=== PATIENT | male | born 1950 | race Caucasian/White ===

== ENCOUNTER → 2021-06-14 | Outpatient (CLI) | payer MEDICARE, OTHER ==
--- NOTE | 2021-06-14 13:41 | Diagnostic Imaging Report ---
INDICATION: Elbow pain. COMPARISON: 05/08/2021. FINDINGS: 3 views of the left elbow show no fractures, dislocations, or other acute bony abnormalities identified. Joint spaces are well maintained throughout. There is focal soft tissue prominence posteriorly over the olecranon. No radiopaque foreign bodies are identified. IMPRESSION: 1. No acute fractures or dislocations of the left elbow. 2. Possible olecranon bursitis. Clinical correlation is recommended. Dictated by: Dictated on workstation # [id number]
--- NOTE | 2021-06-14 13:54 | Diagnostic Imaging Report ---
INDICATION: Knee pain. COMPARISON: None. FINDINGS: Multiple radiographic views of the right knee were obtained. There is no acute fracture or dislocation. Osseous structures are intact. There are tricompartmental osteoarthritic changes. This is greatest involving the medial tibiofemoral compartment where there is severe joint space narrowing with sclerotic remodeling to the articular surfaces and osteophyte formations. Joint spaces are otherwise maintained. There is no large joint effusion. No unexpected radiopaque foreign bodies are seen. IMPRESSION: 1. No acute fracture or dislocation of the right knee. 2. Moderate osteoarthritic changes. Dictated by: Dictated on workstation # [id number]
== END ==
LOC: ORTHO 12:51
PROVIDERS: ATTEND Orthopaedic Surgery
DX: M17.11 Unilateral primary osteoarthritis, right knee (principal); M25.522 Pain in left elbow
CPT/HCPCS: 73080; 73564; G0463; 99213

== ENCOUNTER 2021-06-15 05:41 | Outpatient (CLI) | payer MEDICARE, OTHER ==
[~2021-06-15] VITALS: Ht 185.5 cm; Wt 113.6 kg
[2021-06-22] MEDS ORDERED: OXYC5TAB PO (09:09)
== END 2021-06-19 16:16 | disposition home or self-care (01) ==
LOC: PREOP 05:41
PROVIDERS: ATTEND Orthopaedic Surgery
DX: Z01.818 Encounter for other preprocedural examination (principal)

== ENCOUNTER → 2021-06-22 | Day surgery (SDC) | payer MEDICARE, OTHER ==
[~2021-06-22] VITALS: Ht 185.5 cm; Wt 113.6 kg
[2021-06-22] VITALS (10 sets, daily range): BP systolic 134–146; BP diastolic 76–92
[~2021-06-22] MED LIST: LACTATED RINGERS 1,000 ML IV PRN; LIDOCAINE PF 2% 5 ML (XYLOCAINE) VIAL ONE; LIDOCAINE/EPI 1%-1:200,000 (XYLOCAINE) 30 ML VIAL ONE; MIDAZOLAM 2 MG/2 ML (VERSED) VIAL ONE; ONDANSETRON 4 MG/2 ML (SDV) Z0FRAN ONE; OXYC5TAB PO; SEVOFLURANE (ULTANE) 15 ML INHAL SOLN ONE; ceFAZolin 2 GM IV Premixed 50 ML ONE; fentaNYL INJ 100 MCG/2 ML AMP ONE; proPOfol 200 MG/20 ML (DIPRIVAN) VIAL IV ONE
--- NOTE | 2021-06-22 07:17 | Progress Note-Pre Operative ---
Pre-Operative Progress Note H&P Reviewed The H&P was reviewed, patient examined and no changes noted. Date Seen by Provider: Jun 22, 2021 Time Seen by Provider: 07:10 Date H&P Reviewed: Jun 22, 2021 Time H&P Reviewed: 07:10 Pre-Operative Diagnosis: Left Olecranon Bursitis HAKEEM WOOTEN MD Jun 22, 2021 07:16
--- NOTE | 2021-06-22 09:06 | Operative Report - Ortho ---
Operative Report Surgeon (s)/Process Helper (s) Surgeon HAKEEM WOOTNE MD Process Helper n/a Pre-Operative Diagnosis Left Olecranon Bursitis Post-Operative Diagnosis same Operative Report Date of Procedure: Jun 22, 2021 Name of Procedure Performed: Left Olecranon Bursectomy Description & Findings After obtaining informed consent and marking the patient in the preoperative holding area, patient was taken to the operating room and general anesthesia was induced. Surgical timeout was taken. The left upper extremity was prepped and draped in the usual sterile fashion. Incision was made over the olecranon bursa ellipsing out the draining sinus. Bursa was entered and the was return of a chalky fluid. Swab was obtained and sent for gram stain and culture. The bursal tissue was noted to have a solid white material distributed in clumps throughout it. A scalpel was used to sharply excised the bursal tissue. The excision was widened to include tissue that had the embedded material. Rongeur was used to remove further whitish material. Bursal tissue was sent for pathology, felt to represent gouty tophi. Wound was explored no further deposits were noted. Wound was irrigated with normal saline and closed in layered fashion with 2-0 vicryl and 3-0 nylon. Wound was dressed with xeroform, 4x4s, kerlix, and JESUS wrap. Patient tolerated the procedure well and was stable to the recovery room. Anesthesia Type General Estimated Blood Loss minimal Specimen(s) collected/removed Swab sent for culture and gram stain; bursal tissue sent for pathology. HAKEEM WOOTEN MD Jun 22, 2021 09:06
--- NOTE | 2021-06-27 16:12 | Anesthesia-General Post-Op ---
General Significant Intra-Op Events Notes late entry 06/22@ 1000 Patient Condition Mental Status/LOC: Same as Preop Cardiovascular: Satisfactory Nausea/Vomiting: Absent Respiratory: Satisfactory Pain: Controlled Complications: Absent Post Op Complications Complications None Follow Up Care/Instructions Patient Instructions None needed. Anesthesia/Patient Condition Patient Condition Patient is doing well, no complaints, stable vital signs, no apparent adverse anesthesia problems. No complications reported per nursing. NADIRA ABREU CRNA Jun 27, 2021 16:12
== END | disposition home or self-care (01) ==
LOC: SDC 07:02
PROVIDERS: ATTEND Orthopaedic Surgery
DX: M1A.0221 Idiopathic chronic gout, left elbow, with tophus (tophi) (principal); M70.22 Olecranon bursitis, left elbow; H91.90 Unspecified hearing loss, unspecified ear; H54.7 Unspecified visual loss; G47.33 Obstructive sleep apnea (adult) (pediatric); K21.9 Gastro-esophageal reflux disease without esophagitis; Z87.891 Personal history of nicotine dependence; Z79.899 Other long term (current) drug therapy
CPT/HCPCS: 87070; 87075; 87081; 87205

== ENCOUNTER → 2021-07-10 | Outpatient (CLI) | payer MEDICARE, OTHER ==
[~2021-07-10] MED LIST changes: -LACTATED RINGERS 1,000 ML IV PRN; -LIDOCAINE PF 2% 5 ML (XYLOCAINE) VIAL ONE; -LIDOCAINE/EPI 1%-1:200,000 (XYLOCAINE) 30 ML VIAL ONE; -MIDAZOLAM 2 MG/2 ML (VERSED) VIAL ONE; -ONDANSETRON 4 MG/2 ML (SDV) Z0FRAN ONE; -SEVOFLURANE (ULTANE) 15 ML INHAL SOLN ONE; -ceFAZolin 2 GM IV Premixed 50 ML ONE; -fentaNYL INJ 100 MCG/2 ML AMP ONE; -proPOfol 200 MG/20 ML (DIPRIVAN) VIAL IV ONE
== END ==
LOC: ORTHO 14:06
PROVIDERS: ATTEND Orthopaedic Surgery
DX: Z47.89 Encounter for other orthopedic aftercare (principal); M10.9 Gout, unspecified; Z98.890 Other specified postprocedural states
CPT/HCPCS: 36415; 84550

== ENCOUNTER → 2023-01-15 | Outpatient (CLI) | payer MEDICARE, OTHER ==
--- NOTE | 2023-01-15 17:44 | Diagnostic Imaging Report ---
INDICATION: Right knee pain. AP and lateral and sunrise views of the right knee were obtained. No fracture or acute bony abnormality is seen. There is severe medial joint space narrowing and ossified formation with some lateral subluxation of the tibia relative to the femur. Lateral joint space shows no significant narrowing but does show some osteophyte formation. There is patellofemoral spurring. IMPRESSION: There are osteoarthritic changes of the right knee most prominent in the medial compartment. No acute fracture. Dictated by: Dictated on workstation # [id number]
== END ==
LOC: ORTHO 10:50
PROVIDERS: ATTEND Orthopaedic Surgery
DX: M17.11 Unilateral primary osteoarthritis, right knee (principal)
CPT/HCPCS: 73564; G0463; 99213

== ENCOUNTER 2023-03-18 09:10 | Outpatient (CLI) | payer MEDICARE, OTHER ==
[~2023-03-18] VITALS: Ht 185.5 cm; Wt 114.7 kg
[~2023-03-18 09:10] MED LIST changes: -APIX2.5T PO; -CETI10TA17 PO; -MELO15TA39 PO; -MONT-40 PO; -OMEP40CA6 PO; -OXC5T PO; -TMSL.4C PO; -VENL75CA93 PO
[2023-03-18] MEDS ORDERED: CETI10TA17 PO (12:00)
[2023-03-18] MEDS ORDERED: MONT-40 PO (12:00)
[2023-03-18] MEDS ORDERED: TMSL.4C PO (12:00)
[2023-03-18] MEDS ORDERED: MELO15TA39 PO (12:00)
[2023-03-18] MEDS ORDERED: OMEP40CA6 PO (12:00)
[2023-03-18] MEDS ORDERED: VENL75CA93 PO (12:00)
[2023-03-18 12:02] VITALS: BP 155/94
[2023-03-18 12:53] LABS: BASOPHILS # (AUTO) 0.1 10^3/uL (0.0-0.1); BASOPHILS % (AUTO) 1 % (0-10); EOSINOPHILS # (AUTO) 0.5 10^3/uL (0.0-0.3); EOSINOPHILS % (AUTO) 7 % (0-10); HEMATOCRIT 44 % (40-54); HEMOGLOBIN 15.1 g/dL (13.3-17.7); LYMPHOCYTES # (AUTO) 1.1 10^3/uL (1.0-4.0); LYMPHOCYTES % (AUTO) 16 % (12-44); MEAN CORPUSCULAR HEMOGLOBIN 35 pg (25-34); MEAN CORPUSCULAR HGB CONC 34 g/dL (32-36); MEAN CORPUSCULAR VOLUME 103 fL (80-99); MONOCYTES # (AUTO) 0.7 10^3/uL (0.0-1.0); MONOCYTES % (AUTO) 11 % (0-12); NEUTROPHILS # (AUTO) 4.2 10^3/uL (1.8-7.8); NEUTROPHILS % (AUTO) 64 % (42-75); PLATELET COUNT 243 10^3/uL (130-400); WHITE BLOOD COUNT 6.6 10^3/uL (4.3-11.0)
[2023-03-18 13:02] LABS: CLARITY,URINE SLIGHTLY CLOUDY; COLOR,URINE YELLOW
[2023-03-18 13:03] LABS: BACTERIA,URINE NEGATIVE /HPF; BILIRUBIN,URINE NEGATIVE (NEGATIVE); GLUCOSE, URINE (UA) NEGATIVE (NEGATIVE); KETONES,URINE NEGATIVE (NEGATIVE); LEUKOCYTE ESTERASE ,URINE NEGATIVE (NEGATIVE); NITRITE,URINE NEGATIVE (NEGATIVE); PROTEIN,URINE NEGATIVE (NEGATIVE)
[2023-03-18 13:15] LABS: CREATININE SERUM 0.86 MG/DL (0.60-1.30); POTASSIUM 4.1 MMOL/L (3.6-5.0)
--- NOTE | 2023-03-18 14:37 | Diagnostic Imaging Report ---
EXAMINATION: Chest 2 view HISTORY: Preop COMPARISON: None available. FINDINGS: The lungs are clear without edema or pneumonia. No pleural effusion or pneumothorax. Heart size is normal. IMPRESSION: 1. Clear lungs. Dictated by: Dictated on workstation # [id number]
== END 2023-03-18 16:10 ==
LOC: PREOP 09:10
PROVIDERS: ATTEND Orthopaedic Surgery
DX: Z01.818 Encounter for other preprocedural examination (principal); M17.11 Unilateral primary osteoarthritis, right knee
CPT/HCPCS: 36415; 71046; 80048; 81000; 85025; 87081; 93005

== ENCOUNTER → 2023-03-18 | Outpatient (CLI) | payer MEDICARE, OTHER ==
[~2023-03-18] MED LIST changes: +APIX2.5T PO; +CETI10TA17 PO; +MELO15TA39 PO; +MONT-40 PO; +OMEP40CA6 PO; +OXC5T PO; +TMSL.4C PO; +VENL75CA93 PO
== END ==
LOC: ORTHO 10:53
PROVIDERS: ATTEND Orthopaedic Surgery
DX: Z01.818 Encounter for other preprocedural examination (principal); M17.11 Unilateral primary osteoarthritis, right knee

== ENCOUNTER 2023-04-07 06:10 | Day surgery (SDC) | payer MEDICARE, OTHER ==
[~2023-04-07] VITALS: Ht 185 cm; Wt 114.7 kg
[2023-04-07] VITALS (11 sets, daily range): BP systolic 127–163; BP diastolic 60–102
[~2023-04-07 06:10] MED LIST changes: +CETI10TA17 PO; +MELO15TA39 PO; +MONT-40 PO; +OMEP40CA6 PO; +TMSL.4C PO; +VENL75CA93 PO
[2023-04-07] MEDS ORDERED: ceFAZolin INJECTION 2,000 MG in NS (IVPB) 50 ML 50 ML IV ONE (06:15)
[2023-04-07] MEDS: LACTATED RINGERS 1,000 ML 1,000 ML IV PRN ×2 (06:56→08:01)
[2023-04-07] MEDS ORDERED: BUPIVACAINE 0.5% 30 ML VIAL ONE (07:07)
[2023-04-07] MEDS ORDERED: TRANEXAMIC ACID 100 MG/ML 10 ML INJECTION ONE (07:07)
--- NOTE | 2023-04-07 07:51 | Progress Note-Pre Operative ---
Pre-Operative Progress Note Date of Available H&P: Mar 18, 2023 Date H&P Reviewed: Apr 07, 2023 Time H&P Reviewed: 07:40 History & Physical: H&P Reviewed, Patient Examed, No changes noted Pre-Operative Diagnosis: Right Knee Primary Osteoarthritis HAKEEM WOOTEN MD Apr 07, 2023 07:51
[2023-04-07] MEDS ORDERED: MIDAZOLAM INJ 2 MG/2 ML VIAL ONE (08:07)
[2023-04-07] MEDS ORDERED: proPOfol INJECTION 200 MG/20 ML VIAL IV ONE ×2 (09:40→10:08)
--- NOTE | 2023-04-07 10:36 | Operative Report - Ortho ---
Operative Report Surgeon (s)/Health Promotion Educator (s) Surgeon HAKEEM WOOTEN MD Health Promotion Educator n/a Pre-Operative Diagnosis Right Knee Primary Osteoarthritis Post-Operative Diagnosis same Operative Report Date of Procedure: Apr 07, 2023 Name of Procedure Performed: Right Total Knee Arthroplasty Description & Findings After obtaining informed consent and marking the patient in the preoperative holding area, the patient did receive IV antibiotics. Patient was taken to the operating room and anesthesia was induced. Surgical timeout was taken. The right lower extremity was prepped and draped in the usual sterile fashion. Incision was made and carried down to fascia. Arthrotomy was performed on the medial side of the patella. Patella was retracted laterally and knee was flexed. Found to have circumferential osteophtye around the distal femur as well as exposed bone in the medial compartment. Hole was made in the distal femur for the intramedullary distal femoral cutting guide. Resection was made then the femur was sized as a 7. 4-in-1 block for a size [address]. Anterior cut was made and there was no notch. Posterior cut was made followed by the chamfers. Box cut was performed. Lug holes were drilled. Attention was turned to the tibial side, extramedullary tibial guide was put into place and aligned with the tibial crest. It was set to take 2 mm off of the affected medial side. Drop govind was used to confirm alignment. Resection was made and was parallel to the joint line. Tibial bone block was removed. Lamina timber bucker was put into place and the menisci and posterior osteophytes were removed. The knee was trialed with a size 7 femur and a size 7 tibia with an 11 mm poly trial. It was found to come out to full extension and flexed beyond 120 degrees. It was stable to varus and valgus stress throughout its range of motion. This was accepted. Knee was brought out into extension and the patella was prepared for an inset patellar button. Trial patella was placed and tracked well. Trial implants were removed. Tibial tray was pinned and punched. The cut bone surfaces were lavaged with pulsatile normal saline. Cement was mixed. Implants were opened and assembled on the back table. Cement was applied to the cut bone surfaces as well as the implant surfaces. A size 7 tibial component was impacted into place and excess cement was removed using a freer. A size 7 femoral component was impacted into place and excess cement was removed using a freer. Tibial tray was lavaged with saline. An 11 mm thick polyethylene component was locked into placed and the locking mechanism was checked. Knee was brought into extension. Patella was irrigated and dried; patellar component was cemented into position. The cement was allowed to set. Irrisept soak was performed. The knee was once again trialed; found to come to full extension, flexed beyond 120 degrees, and was stable to varus and valgus stress. Tourniquet was dropped and electrocautery was used for hemostasis. Fascial layer was closed with #2 Stratafix. The subcutaneous layer was closed with 2-0 Vicryl. The skin was lesley sed with 3-0 Vloc. Wound was dressed with steri-strips, xeroform, 4x4s, ABD, webril, and JESUS wrap. Patient tolerated the procedure well and was stable to the recovery room. Anesthesia Type Spinal Estimated Blood Loss 150 mL Specimen(s) collected/removed None HAKEEM WOOTEN MD Apr 07, 2023 10:36
[2023-04-07] MEDS ORDERED: MILK OF MAGNESIA 400 MG/5 ML 30 ML UDC PO PRN (10:45)
[2023-04-07] MEDS ORDERED: BISACODYL 5 MG TABLET PO PRN (10:45)
[2023-04-07] MEDS ORDERED: NON-FORMULARY MEDICATION 1 EA EA (Cetirizine HCl 10 MG) PO SCH (10:45)
[2023-04-07] MEDS ORDERED: ONDANSETRON INJECTION 4 MG/2 ML (SDV) IVP PRN (11:00)
--- NOTE | 2023-04-07 11:16 | Diagnostic Imaging Report ---
INDICATION: Right knee replacement, postsurgical follow-up. COMPARISON: 01/15/2023 TECHNIQUE: 2 radiographs of the right knee dated 04/07/2023 FINDINGS: Recent placement of a right total knee arthroplasty is noted with postsurgical soft tissue gas present. Hyperdensity within the soft tissues medial to the distal femur is again noted and unchanged. No evidence of immediate hardware complication. No acute fracture or dislocation. No destructive osseous process. Moderate background vascular calcifications. IMPRESSION: Recent interval placement of a right total knee arthroplasty without evidence of hardware complication or acute osseous abnormality. Dictated by: Dictated on workstation # [id number]
[2023-04-07] MEDS ORDERED: LORATADINE 10 MG TABLET PO PRN (11:45)
[2023-04-07] MEDS: NS IV 1000 ML 1,000 ML IV SCH ×2 (12:01→21:26)
[2023-04-07] MEDS: morphine INJ 4 MG/ML 1 ML (VIAL/SYRINGE) IVP PRN ×3 (12:01→18:54)
[2023-04-07] MEDS: oxyCODONE IMMEDIATE RELEASE 5 MG TABLET PO PRN ×2 (14:00→18:06)
--- NOTE | 2023-04-07 14:12 | Physical Therapy Evaluation ---
PT Evaluation-General Medical Diagnosis Admission Date April 07, 2023 Medical Diagnosis: right knee OA Onset Date: Apr 07, 2023 Therapy Diagnosis Therapy Diagnosis: impaired mobility Precautions Precautions/Isolations: Fall Prevention, Standard Precautions Weight Bear Status Right Lower Extremity: Right Weight Bearing/Tolerated Left Lower Extremity: Left Full Weight Bearing Referral Physician: Steven Reason for Referral: Evaluation/Treatment Medical History Pertinent Medical History: HTN Current History s/p elective right TKR Reviewed History: Yes Social History Home: Single Level Entry Into Home: Stairs With Railing PT Steps Into Home: 3 Prior Prior Level of Function SCALE: Activities may be completed with or without assistive devices. 2-Feunikajdy-mslslga completes the activity by him/herself with no assistance from a helper. 5-Set-up or Clean-up Assistance-helper sets up or cleans up; patient completes activity. [place] assists only prior to or following the activity. 4-Supervision or Touching Assistance-helper provides verbal cues and/or touc schuyler/steadying and/or contact guard assistance as patient completes activity. Assistance may be provided throughout the activity or intermittently. 3-Partial/Moderate Assistance-helper does LESS THAN HALF the effort. [place] lifts, holds or supports trunk or limbs, but provides less than half the effort. 2-Substantial/Maximal Assistance-helper does MORE THAN HALF the effort. [place] lifts or holds trunk or limbs and provides more than half the effort. 4-Ctptlvdlo-exncbh does ALL the effort. Patient does none of the effort to complete the activity. Or, the assistance of 2 or more helpers is required for the patient to complete the activity. If activity was not attempted, code reason: 7-Patient Refused. 9-Not Applicable-not attempted and the patient did not perform the activity before the current illness, exacerbation or injury. 10-Not Attempted due to Environmental Limitations-(lack of equipment, weather restraints, etc.). 88-Not Attempted due to Medical Conditions or Safety Concerns. Bed Mobility: 6 Transfers (B,C,W/C): 6 Gait: 6 Stairs: 6 Indoor Mobility (Ambulation): Independent Stairs: Independent Prior Devices Use: None PT Evaluation-Current Subjective Patient agrees to PT. Pain Numeric Pain Scale: 7 Location: Right Location Body Site: Knee Pain Description: Acute Objective Attachments: Polar Pack, IV ROM/Strength ROM Lower Extremities right knee flexion 70 degrees-10 degrees extension/left LE WFL Strength Lower Extremities right LE 3/5 grossly/left LE 4/5 grossly Integumentary/Posture Bowel Incontinence: No Bladder Incontinence: No Posture WFL Neuromuscular (Tone, Coordination, Reflexes) grossly intact Sensory Vision: Wears Glasses Hearing: Functional Transfers Lying to Sitting/Side of Bed(Q: 4 Sit to Stand (QC): 4 Chair/Aua-ky-Ixgfz Xfer(QC): 4 Gait Mode of Locomotion: Walk Anticipated Mode of Locomotion: Walk Walk 10 feet (QC): 4 Walk 50 ft with 2 Turns(QC): 4 Walk 150 ft (QC): 4 Distance: 150' Gait Assistive Device: FWW Comments/Gait Description slow, antalgic Balance Sitting Static: Normal Sitting Dynamic: Normal Standing Static: Fair Standing Dynamic: Fair Assessment/Needs Patient will benefit from skilled PT to address functional strength and mobility to improve current LOF to safely return to home with family at maximum LOF Rehab Potential: Fair PT Plan Problem List Problem List: Activity Tolerance, Functional Strength, Safety, Balance, Gait, Transfer, Bed Mobility, ROM Treatment/Plan Treatment Plan: Continue Plan of Care Treatment Plan: Bed Mobility, Education, Functional Activity Leslie, Functional Strength, Gait, Safety, Therapeutic Exercise, Transfers Treatment Duration: Apr 12, 2023 Frequency: 11 times per week Estimated Hrs Per Day: .5 hour per day Patient and/or Family Agrees t: Yes Time Time In: 1335 Time Out: 1358 DATE: Apr 07, 2023 Total Billed Treatment Time: 23 Total Billed Treatment 1 visit EVModC 10 min GT 13 min OLIVER BROWNE PT Apr 07, 2023 14:12
--- NOTE | 2023-04-07 15:40 | Occupational Therapy Eval ---
OT Evaluation-General/PLF Medical Diagnosis Admission Date Medical Diagnosis: right knee OA Onset Date: Apr 07, 2023 Therapy Diagnosis Therapy Diagnosis: weakness Precautions Precautions/Isolations: Fall Prevention, Standard Precautions Weight Bear Status Weight Bearing Restriction: Weight Bearing/Tolerated Location Restriction: R LE Referral Physician: Steven Referral Reason: Evaluation/Treatment Medical History Pertinent Medical History: HTN Reviewed History: Yes Social History Home: Single Level Entry Into Home: Stairs With Railing Steps Into Home: 3 ADL-Prior Level of Function SCALE: Activities may be completed with or without assistive devices. 6-Xybyfqvlpr-cemjzow completes the activity by him/herself with no assistance from a helper. 5-Set-up or Clean-up Assistance-helper sets up or cleans up; patient completes activity. [place] assists only prior to or following the activity. 4-Supervision or Touching Assistance-helper provides verbal cues and/or touching/steadying and/or contact guard assistance as patient completes activity. Assistance may be provided throughout the activity or intermittently. 3-Partial/Moderate Assistance-helper does LESS THAN HALF the effort. [place] lifts, holds or supports trunk or limbs, but provides less than half the effort. 2-Substantial/Maximal Assistance-helper does MORE THAN HALF the effort. [place] lifts or holds trunk or limbs and provides more than half the effort. 2-Ftnufmtfy-rlszug does ALL the effort. Patient does none of the effort to complete the activity. Or, the assistance of 2 or more helpers is required for the patient to complete the activity. If activity was not attempted, code reason: 7-Patient Refused. 9-Not Applicable-not attempted and the patient did not perform the activity before the current illness, exacerbation or injury. 10-Not Attempted due to Environmental Limitations-(lack of equipment, weather restraints, etc.). 88-Not Attempted due to Medical Conditions or Safety Concerns. Self Care: Independent Functional Cognition: Independent OT Current Status Subjective Agrees to therapy Mental Status/Objective Patient Orientation: Person, Place, Time, Situation Current Upper Extremity ROM BUE ROM WFLS Upper Extremity Coordination FAIR + Upper Extremity Sensation INTACT Upper Extremity Strength 4/5 grossly ADL-Treatment Eating (QC): 6 Oral Hygiene (QC): 5 Shower/Bathe Self (QC): 7 Upper Body Dressing (QC): 5 Lower Body Dressing (QC): 4 On/Off Footwear (QC): 4 Toileting Hygiene (QC): 4 Education OT Patient Education: Correct positioning, Modified ADL techniques, Progress toward Goal/Update tx plan, Purpose of tx/functional activities, Reviewed precautions, Rehab process, Safety issues, Transfer techniques Teaching Recipient: Patient Teaching Methods: Demonstration, Discussion Response to Teaching: Reinforcement Needed OT Superintendent Logging Goals Fpc Goals Eating (QC): 6 Oral Hygiene (QC): 6 Toileting Hygiene (QC): 6 Shower/Bathe Self (QC): 6 Upper Body Dressing (QC): 6 Lower Body Dressing (QC): 6 On/Off Footwear (QC): 6 1=Demonstrate adherence to instructed precautions during ADL tasks. 2=Patient will verbalize/demonstrate understanding of assistive devices/modifications for ADL. 3=Patient will improve strength/tolerance for activity to enable patient to perform ADL's. OT Education/Plan Problem List/Assessment Assessment: Decreased Activ Tolerance, Impaired Funct Balance, Impaired Self- Care Skills Discharge Recommendations Plan/Recommendations: Continue POC Treatment Plan/Plan of Care Treatment,Training & Education: Yes Patient would benefit from OT for education, treatment and training to promote independence in ADL's, mobility, safety and/or upper extremity function for ADL's. Plan of Care: ADL Retraining, Functional Mobility, Group Exercise/Act as Ind, UE Funct Exercise/Act Treatment Duration: Apr 11, 2023 Frequency: 3 times per week (3-5 times per week) Estimated Hrs Per Day: .25 hour per day Agreement: Yes Rehab Potential: Fair Time Start Time: 13:46 Stop Time: 13:56 DATE: Apr 07, 2023 Total Time Billed (hr/min): 10 Billed Treatment Time EVM 10 min KENA BAIN OT Apr 07, 2023 15:40
[2023-04-07] MEDS: ceFAZolin INJECTION 2,000 MG in NS (IVPB) 50 ML 50 ML IV SCH (16:20)
[2023-04-07] MEDS: ONDANSETRON INJECTION 4 MG/2 ML (SDV) IV PRN (17:27)
[2023-04-07] MEDS: BACLOFEN 10 MG TABLET PO PRN (17:27)
[2023-04-07] MEDS: CELECOXIB 100 MG CAPSULE PO SCH (20:10)
[2023-04-07] MEDS: DOCUSATE SODIUM 100 MG CAPSULE PO SCH (20:10)
[2023-04-07] MEDS ORDERED: ceFAZolin INJECTION 2,000 MG in NS (IVPB) 50 ML 50 ML IV SCH (21:00)
[2023-04-07] MEDS: ACETAMINOPHEN 500 MG TABLET PO PRN (22:49)
[2023-04-08] MEDS: ceFAZolin INJECTION 2,000 MG in NS (IVPB) 50 ML 50 ML IV SCH (00:16)
[2023-04-08] MEDS: ONDANSETRON INJECTION 4 MG/2 ML (SDV) IV PRN (01:31)
[2023-04-08 03:35] VITALS: BP 117/78
[2023-04-08 05:46] LABS: BASOPHILS % (AUTO) 0 % (0-10); EOSINOPHILS # (AUTO) 0.1 10^3/uL (0.0-0.3); EOSINOPHILS % (AUTO) 1 % (0-10); HEMATOCRIT 36 % (40-54); HEMOGLOBIN 12.4 g/dL (13.3-17.7); LYMPHOCYTES % (AUTO) 11 % (12-44); MEAN CORPUSCULAR HEMOGLOBIN 37 pg (25-34); MEAN CORPUSCULAR HGB CONC 35 g/dL (32-36); MEAN CORPUSCULAR VOLUME 106 fL (80-99); MEAN PLATELET VOLUME 10.2 fL (9.0-12.2); MONOCYTES # (AUTO) 1.1 10^3/uL (0.0-1.0); MONOCYTES % (AUTO) 12 % (0-12); NEUTROPHILS # (AUTO) 6.9 10^3/uL (1.8-7.8); NEUTROPHILS % (AUTO) 75 % (42-75); PLATELET COUNT 180 10^3/uL (130-400); WHITE BLOOD COUNT 9.2 10^3/uL (4.3-11.0)
[2023-04-08 05:55] LABS: ALBUMIN 3.3 GM/DL (3.2-4.5)
[2023-04-08 05:56] LABS: POTASSIUM 3.4 MMOL/L (3.6-5.0)
[2023-04-08 05:57] LABS: CALCIUM 7.9 MG/DL (8.5-10.1)
[2023-04-08 05:58] LABS: TOTAL PROTEIN 5.4 GM/DL (6.4-8.2)
[2023-04-08 06:00] LABS: BILIRUBIN,TOTAL 1.1 MG/DL (0.1-1.0)
[2023-04-08 06:02] LABS: CREATININE SERUM 0.89 MG/DL (0.60-1.30)
[2023-04-08] MEDS: THERAPEUTIC MULTIVITAMIN W/MINERALS TABLET PO SCH (06:45)
[2023-04-08] MEDS: NS IV 1000 ML 1,000 ML IV SCH (06:45)
[2023-04-08] MEDS ORDERED: POTASSIUM CHLORIDE 20 MEQ TABLET PO NR (07:00)
[2023-04-08 07:52] VITALS: BP 132/80
[2023-04-08] MEDS: morphine INJ 4 MG/ML 1 ML (VIAL/SYRINGE) IVP PRN (07:52)
[2023-04-08] MEDS: CELECOXIB 100 MG CAPSULE PO SCH ×2 (08:04→19:53)
[2023-04-08] MEDS: TAMSULOSIN 0.4 MG (FLOMAX) CAP PO SCH (08:04)
[2023-04-08] MEDS: APIXABAN 2.5 MG TABLET PO SCH ×2 (08:05→19:53)
[2023-04-08] MEDS: DOCUSATE SODIUM 100 MG CAPSULE PO SCH ×2 (08:05→19:52)
[2023-04-08] MEDS: PANTOPRAZOLE 40 MG TABLET PO SCH (08:05)
[2023-04-08] MEDS: MONTELUKAST 10 MG TABLET PO SCH (08:05)
--- NOTE | 2023-04-08 08:31 | Progress Note - Ortho ---
Progress Note Subjective Date of Exam 04/08/23 Chief Complaint POD #1 R TKA HPI/Events since last exam difficulty with pain control last night, better today, has started therapy Review of Systems - Allergies: Coded Allergies: No Known Drug Allergies (Unverified , 03/18/23) Home Meds Reported Medications Cetirizine HCl (Cetirizine HCl) 10 Mg Tablet, 10 MG PO NEEDED, TAB 03/18/23 Montelukast Sodium (Montelukast Sodium) 10 Mg Tablet, 10 MG PO DAILY, TAB 03/18/23 Tamsulosin HCl (Flomax) 0.4 Mg Cap, 2 CAP PO DAILY, CAP 03/18/23 Venlafaxine HCl (Venlafaxine HCl ER) Unknown Strength Cap.er.24h, PO DAILY, CAP 03/18/23 Meloxicam (Meloxicam) 15 Mg Tablet, 15 MG PO DAILY, TAB 03/18/23 Omeprazole (Omeprazole) 40 Mg Capsule.dr, 40 MG PO DAILY, CAP 03/18/23 Objective Exam R knee: dressing sliding and top of incision c/d/i, +DF of ankle, no s/s of DVT Vital Signs Vital Signs Date Time Temp Pulse Resp B/P (MAP) Pulse Ox O2 Delivery O2 Flow Rate FiO2 04/08/23 07:52 37.3 72 16 132/80 (97) 93 Nasal Cannula 3.00 04/08/23 03:35 36.9 89 18 117/78 (91) 96 Room Air 04/07/23 23:26 37.0 04/07/23 23:25 37.0 100 18 127/63 (84) 93 Room Air 04/07/23 22:49 38.8 04/07/23 21:45 91 Room Air 04/07/23 20:45 38.1 04/07/23 19:45 38.1 98 18 133/66 (88) 91 Room Air 04/07/23 17:00 36.8 81 18 138/60 (86) 95 Simple Mask 04/07/23 12:16 36.0 70 16 163/78 (106) 95 Room Air 04/07/23 11:25 Room Air 04/07/23 11:20 36.4 20 142/76 (98) 97 Room Air 04/07/23 11:10 16 151/83 (105) 94 Room Air 04/07/23 11:05 Room Air 04/07/23 11:00 20 141/82 (101) 96 Room Air 04/07/23 10:50 Room Air 04/07/23 10:50 16 145/71 (95) 97 Room Air 04/07/23 10:42 20 140/80 (100) 95 Room Air 04/07/23 10:35 Room Air 04/07/23 10:35 36.5 20 135/79 (97) 96 Room Air I & O 04/08/23 06:59 Intake Total 4342 ml Output Total 1920 ml Balance 2422 ml Lab Results Laboratory Tests 04/08/23 05:21: White Blood Count 9.2, Red Blood Count 3.40L, Hemoglobin 12.4L, Hematocrit 36L, Mean Corpuscular Volume 106H, Mean Corpuscular Hemoglobin 37H, Mean Corpuscular Hemoglobin Concent 35, Red Cell Distribution Width 11.6, Platelet Count 180, Mean Platelet Volume 10.2, Immature Granulocyte % (Auto) 1, Neutrophils (%) (Auto) 75, Lymphocytes (%) (Auto) 11L, Monocytes (%) (Auto) 12, Eosinophils (%) (Auto) 1, Basophils (%) (Auto) 0, Neutrophils # (Auto) 6.9, Lymphocytes # (Auto) 1.0, Monocytes # (Auto) 1.1H, Eosinophils # (Auto) 0.1, Basophils # (Auto) 0.0, Immature Granulocyte # (Auto) 0.1, Sodium Level 138, Potassium Level 3.4L, Chloride Level 105, Carbon Dioxide Level 26, Anion Gap 7, Blood Urea Nitrogen 14, Creatinine 0.89, Estimat Glomerular Filtration Rate 90, BUN/Creatinine Ratio 16, Glucose Level 110H, Calcium Level 7.9L, Corrected Calcium 8.5, Total Bilirubin 1.1H, Aspartate Amino Transf (AST/SGOT) 21, Alanine Aminotransferase (ALT/SGPT) 18, Alkaline Phosphatase 43, Total Protein 5.4L, Albumin 3.3 Imaging 2 postop views of right knee dated 04/07/23 were reviewed from PACS and demonstrated total knee arthroplasty with components in good position Assessment and Plan Assessment R Knee OA s/p TKA Problem List R Knee OA s/p TKA Plan PT/OT DVT Prophylaxis Plan for home with home health tomorrow Final Diagonsis R Knee OA s/p TKA Level of the visit: Level 3 (global) HAKEEM WOOTEN MD Apr 08, 2023 08:31
[2023-04-08] MEDS ORDERED: NON-FORMULARY MEDICATION 1 EA EA (Omeprazole 40 MG) PO SCH (09:00)
--- NOTE | 2023-04-08 09:06 | Consultation ---
DIANA BETTENCOURT 04/08/23 0906: HPI History of Present Illness: HPI/Chief Complaint Pt is a 72 y/o male who presented for a R knee total arthroplasty with Dr. Harris yesterday. Nurse reports that his pain was not well controlled last night and pt states that no medication seemed to help him. He rated it an 18/10 last night. Today, he states that his pain is under better control, rating it a 4/10 at rest and a 7-8/10 with movement. He had one dose of morphine 2 mg this AM as well as celeoxib. When going by his room this morning, pt was walking with PT with a walker slowly down the halls. He denies any fevers but in his vitals hx can see a few episodes of elevated temp, the highest being at 38.8 C. Currently on cefazolin. WBC = 9.2. Denies vomit, but states he has had some mild nausea. Of note, pt reports that he recently had a scope done about a month ago for lumbar stenosis. He states that his back pain has not improved since. He is joined by his son at bedside. Source: patient, family Exam Limitations: no limitations Date Seen 04/08/23 Attending Physician No,Local Physician PCP Admitting Physician: Saravanan Harris MD Attending Physician: Saravanan Harris MD Referring Physician Dr. Harris Date of Admission Home Medications & Allergies Home Medications Reviewed patient Home Medication Reconciliation performed by pharmacy medication reconciliations roofing technician and/or nursing. Patients Allergies have been reviewed. Allergies Allergies Coded Allergies No Known Drug Allergies (Fbrbhfrmet13/14/23) Past Dnyjhln-Evyvyo-Czotmx Hx Patient Social History Tobacco Use?: No Use of E-Cig and/or Vaping dev: No Substance use?: No Alcohol Use?: No Immunizations Up To Date Date of Influenza Vaccine: Feb 28, 2023 First/Initial COVID19 Vaccinat: 2020 Second COVID19 Vaccination Jayme: 2020 Tetanus Booster (TDap): Less Than 5 Years Hepatitis A: No Hepatitis B: No Seasonal Allergies Seasonal Allergies: Yes (hayfever) Current Status Advance Directives: No Communicates: Verbally Primary Language: Colombian Is interpretation needed?: No Sensory deficits: Vision impairment, Hearing impairment Past Medical History Surgeries: Eye Surgery, Joint Replacement, Orthopedic Sleep Apnea Currently Using CPAP: No Currently Using BIPAP: No Sexually Transmitted Disease: No Prostate Problems Gastroesophageal Reflux Arthritis, Chronic Back Pain, Fractures Cataract, Tinnitis Hearing Impairment: Hard of Hearing Skin Did You Recieve Any Treatments: Yes What Type of Treatment Did You: Surgical Intervention Anxiety Blood Disorders: No Review of Systems Constitutional: No chills, No fever EENTM: No vision loss, No hoarseness Respiratory: No cough; dyspnea on exertion; No short of breath Cardiovascular: No chest pain, No palpitations Gastrointestinal: No abdominal pain, No constipation, No diarrhea Genitourinary: No decreased output, No dysuria Musculoskeletal: back pain, joint pain Skin: No change in color, No pruritus, No rash Psychiatric/Neurological: Denies Headache, Denies Weakness Physical Exam Physical Exam Vital Signs Vital Signs - First Documented 04/07/23 04/08/23 06:25 07:52 Temp 36.6 Pulse 93 Resp 20 B/P (MAP) 161/102 (121) Pulse Ox 96 O2 Delivery Room Air O2 Flow Rate 3.00 Capillary Refill : Height, Weight, BMI Height: '" Weight: lbs. oz. kg; 33.51 BMI Method: General Appearance: No Apparent Distress, WD/WN Eyes: Bilateral Eye Normal Inspection HEENT: PERRL/EOMI, Normal ENT Inspection Neck: Normal Inspection, Non Tender, Supple Respiratory: Chest Non Tender, Lungs Clear, Normal Breath Sounds, No Accessory Muscle Use, No Respiratory Distress Cardiovascular: Regular Rate, Rhythm, No Murmur, Normal Peripheral Pulses Gastrointestinal: Non Tender, Soft Back: Normal Inspection Extremity: Normal Capillary Refill, Normal Inspection, No Calf Tenderness, No Pedal Edema, Other (dressings around R knee) Neurologic/Psychiatric: Alert, Oriented x3, No Motor/Sensory Deficits, Normal Mood/Affect Skin: Normal Color, Warm/Dry Lymphatic: No Adenopathy Results Results/Procedures Labs Laboratory Tests 04/08/23 05:21 Patient resulted labs reviewed. Imaging: Reviewed Imaging Report Assessment/Plan Assessment and Plan Assess & Plan/Chief Complaint R knee osteoarthritis s/p R total knee arthroplasty 04/07/[address] Harris - Optimize pain control - Continue PT/OT - PPI - Encourage regular ambulation MARY ANNE CRAIN DO 04/09/23 0438: HPI History of Present Illness: HPI/Chief Complaint Chief complaint: Right knee replacement HPI: This is a 72-year-old male who presented to room 408 after an uncomplicated right total knee replacement. He has had significant pain but is much improved today. He does still have a little bit of nausea. I will replace potassium. Source: patient Exam Limitations: no limitations Past Sshhtom-Wlgdgy-Vlmzvi Hx Patient Social History Marrital Status: Employed/Student: retired Smoking Status: Never a Smoker Past Medical History High Cholesterol, Hypertension Benign Prostatic Hyperpl Review of Systems Constitutional: see HPI Musculoskeletal: back pain, joint pain Physical Exam Physical Exam General Appearance: No Apparent Distress, WD/WN Eyes: Bilateral Eye Normal Inspection, Bilateral Eye PERRL HEENT: PERRL/EOMI, Normal ENT Inspection, Pharynx Normal Neck: Full Range of Motion, Normal Inspection, Non Tender, Supple, Carotid Bruit Respiratory: Chest Non Tender, Lungs Clear, Normal Breath Sounds, No Accessory Muscle Use, No Respiratory Distress Cardiovascular: Regular Rate, Rhythm, No Edema, No Gallop, No JVD, No Murmur, Normal Peripheral Pulses Gastrointestinal: Normal Bowel Sounds, No Organomegaly, No Pulsatile Mass, Non Tender, Soft Back: Normal Inspection, No CVA Tenderness, No Vertebral Tenderness Extremity: Normal Capillary Refill, Normal Inspection, Normal Range of Motion (Except right leg), Non Tender, No Calf Tenderness, No Pedal Edema Neurologic/Psychiatric: Alert, Oriented x3, No Motor/Sensory Deficits, Normal Mood/Affect Skin: Normal Color, Warm/Dry Lymphatic: No Adenopathy Assessment/Plan Assessment and Plan Assess & Plan/Chief Complaint Assessment: Right total knee replacement Hypokalemia Nausea BPH Plan: Pain control Monitor closely Supervisory-Addendum Brief Verification & Attestation Participated in pt care: history, MDM, physical Personally performed: exam, history, MDM, supervision of care Care discussed with: Medical Student Procedures: n/a Results interpretation: Verified all documentation Verification and Attestation of Medical Student E/M Service A medical student performed and documented this service in my presence. I reviewed and verified all information documented by the medical student and made modifications to such information, when appropriate. I personally performed the physical exam and medical decision making. Mary Anne Crain, Apr 09, 2023,04:36 DIANA BETTENCOURT Apr 08, 2023 09:06 MARY ANNE CRAIN DO Apr 09, 2023 04:38
[2023-04-08] MEDS: ACETAMINOPHEN 500 MG TABLET PO PRN (10:03)
--- NOTE | 2023-04-08 10:05 | Physical Therapy Daily Note ---
PT Daily Note-Current Subjective Patient agrees to PT. Pain Section J - Health Conditions 1. Rarely or not at all 2. Occasionally 3. Frequently 4. Almost constantly 8. Unable to answer Pain Effect on Sleep: 2 Pain Interference with Therapy: 1 Pain Interference w/Day-to-Day: 1 Mental Status Patient Orientation: Normal For Age Transfers SCALE: Activities may be completed with or without assistive devices. 7-Qixgpqwjjw-dairftq completes the activity by him/herself with no assistance from a helper. 5-Set-up or Clean-up Assistance-helper sets up or cleans up; patient completes activity. [place] assists only prior to or following the activity. 4-Supervision or Touching Assistance-helper provides verbal cues and/or touching/steadying and/or contact guard assistance as patient completes activity. Assistance may be provided throughout the activity or intermittently. 3-Partial/Moderate Assistance-helper does LESS THAN HALF the effort. [place] lifts, holds or supports trunk or limbs, but provides less than half the effort. 2-Substantial/Maximal Assistance-helper does MORE THAN HALF the effort. [place] lifts or holds trunk or limbs and provides more than half the effort. 3-Cqukfgfjp-exskrv does ALL the effort. Patient does none of the effort to complete the activity. Or, the assistance of 2 or more helpers is required for the patient to complete the activity. If activity was not attempted, code reason: 7-Patient Refused. 9-Not Applicable-not attempted and the patient did not perform the activity before the current illness, exacerbation or injury. 10-Not Attempted due to Environmental Limitations-(lack of equipment, weather restraints, etc.). 88-Not Attempted due to Medical Conditions or Safety Concerns. Lying to Sitting/Side of Bed(Q: 4 Sit to Stand (QC): 4 Chair/Fol-yd-Dryek Xfer(QC): 4 CGA for safety Weight Bearing Right Lower Extremity: Right Weight Bearing/Tolerated Left Lower Extremity: Left Full Weight Bearing Gait Training Distance: 125' Walk 10 feet (QC): 4 Walk 50 ft with 2 Turns(QC): 4 Gait Assistive Device: FWW slow, antalgic gait with noted right knee flexed posture Exercises Seated Therapy Exercises: Ankle pumps, Long arc quads, Hip flexion Seated Reps: 15 (AAROM with patient having difficulty with tomás right quad) Assessment Patient requires time to complete all functional tasks. Noted 20-30 degree right knee extension lag. Patient educated on performing exercises PRN. PT encouraged patient to think about ARU due to patient lives alone and is currently having difficulty with safe functional mobility. Family present. PT Plan Treatment/Plan Treatment Plan: Continue Plan of Care Treatment Plan: Bed Mobility, Education, Functional Activity Leslie, Functional Strength, Gait, Safety, Therapeutic Exercise, Transfers Treatment Duration: Apr 12, 2023 Frequency: 11 times per week Estimated Hrs Per Day: .5 hour per day Patient and/or Family Agrees t: Yes Time Time In: 810 Time Out: 840 DATE: Apr 08, 2023 Total Billed Treatment Time: 30 Total Billed Treatment 1 visit EX 14 min GT 16 min OLIVER BROWNE PT Apr 08, 2023 10:05
--- NOTE | 2023-04-08 10:13 | Occupational Ther Daily Note ---
OT Current Status-Daily Note Subjective Up in recliner w/ visitor present, agreeable for OT to proceed Pain Numeric Pain Scale: 5-Moderate Pain Location: Right Location Body Site: Knee Mental Status/Objective Patient Orientation: Person, Place, Time, Situation ADL-Treatment Completed full UB/LB [id number] tasks w/ FWW for stability while standing Therapy Code Descriptions/Definitions Functional Edgar Measure: 0=Not Assessed/NA 4=Minimal Assistance 1=Total Assistance 5=Supervision or Setup 2=Maximal Assistance 6=Modified Edgar 3=Moderate Assistance 7=Complete IndependenceSCALE: Activities may be completed with or without assistive devices. 4-Ttyypsohvm-lsfbzpz completes the activity by him/herself with no assistance from a helper. 5-Set-up or Clean-up Assistance-helper sets up or cleans up; patient completes activity. [place] assists only prior to or following the activity. 4-Supervision or Touching Assistance-helper provides verbal cues and/or touching/steadying and/or contact guard assistance as patient completes activity. Assistance may be provided throughout the activity or intermittently. 3-Partial/Moderate Assistance-helper does LESS THAN HALF the effort. [place] lifts, holds or supports trunk or limbs, but provides less than half the effort. 2-Substantial/Maximal Assistance-helper does MORE THAN HALF the effort. [place] lifts or holds trunk or limbs and provides more than half the effort. 6-Zrxnqiyvh-eeemti does ALL the effort. Patient does none of the effort to complete the activity. Or, the assistance of 2 or more helpers is required for the patient to complete the activity. If activity was not attempted, code reason: 7-Patient Refused. 9-Not Applicable-not attempted and the patient did not perform the activity before the current illness, exacerbation or injury. 10-Not Attempted due to Environmental Limitations-(lack of equipment, weather restraints, etc.). 88-Not Attempted due to Medical Conditions or Safety Concerns. Eating (QC): 6 Oral Hygiene (QC): 6 Upper Body Dressing (QC): 5 (garments handed to patient) Lower Body Dressing (QC): 5 (garments handed to patient) On/Off Footwear: 5 (garments handed to patient) Toileting Hygiene (QC): 5 Toilet Transfer (QC): 5 Education OT Patient Education: Correct positioning, Modified ADL techniques, Progress toward Goal/Update tx plan, Purpose of tx/functional activities, Reviewed precautions, Rehab process, Safety issues, Transfer techniques, Use of adapted equipment Teaching Recipient: Patient Teaching Methods: Discussion Response to Teaching: Return Demonstration OT Scrap Iron Loader Goals Scrap Iron Loader Goals Eating (QC): 6 Oral Hygiene (QC): 6 Toileting Hygiene (QC): 6 Shower/Bathe Self (QC): 6 Upper Body Dressing (QC): 6 Lower Body Dressing (QC): 6 On/Off Footwear (QC): 6 1=Demonstrate adherence to instructed precautions during ADL tasks. 2=Patient will verbalize/demonstrate understanding of assistive devices/modifications for ADL. 3=Patient will improve strength/tolerance for activity to enable patient to perform ADL's. OT Education/Plan Problem List/Assessment Assessment: No Skilled OT Needs ID'd Discharge Recommendations Plan/Recommendations: Discharge/Goals Met Treatment Plan/Plan of Care Patient would benefit from OT for education, treatment and training to promote independence in ADL's, mobility, safety and/or upper extremity function for ADL's. Plan of Care: ADL Retraining, Functional Mobility, Group Exercise/Act as Ind, UE Funct Exercise/Act Treatment Duration: Apr 11, 2023 Frequency: 3 times per week (3-5 times per week) Estimated Hrs Per Day: .25 hour per day Agreement: Yes Rehab Potential: Good Time Start Time: 08:35 Stop Time: 08:46 DATE: Apr 08, 2023 Total Time Billed (hr/min): 11 Billed Treatment Time ADL 11 min KENA BAIN OT Apr 08, 2023 10:13
[2023-04-08 11:33] VITALS: BP 117/58
--- NOTE | 2023-04-08 13:58 | Anesthesia-Regional Post-Op ---
Regional Patient Condition Mental Status: Alert, Oriented x3 Circulation: Same as Pre-Op Headache: Absent Sensation: Full Recovery Motor Block: Absent Post Op Complications Complications None Follow Up Care/Instructions Patient Instructions None needed. Anesthesia/Patient Condition Patient is doing well, has had some nausea with pain medications, stable vital signs, no apparent adverse anesthesia problems. No complications reported per nursing. NICOLA HEIN DO Apr 08, 2023 13:58
--- NOTE | 2023-04-08 14:22 | Physical Therapy Daily Note ---
PT Daily Note-Current Subjective Patient agrees to PT. Pain Numeric Pain Scale: 8 Location: Right Location Body Site: Knee Pain Description: Acute Section J - Health Conditions 1. Rarely or not at all 2. Occasionally 3. Frequently 4. Almost constantly 8. Unable to answer Pain Effect on Sleep: 1 Pain Interference with Therapy: 1 Pain Interference w/Day-to-Day: 1 Transfers SCALE: Activities may be completed with or without assistive devices. 7-Rfvamaxufw-qeqsaxd completes the activity by him/herself with no assistance from a helper. 5-Set-up or Clean-up Assistance-helper sets up or cleans up; patient completes activity. [place] assists only prior to or following the activity. 4-Supervision or Touching Assistance-helper provides verbal cues and/or touching /steadying and/or contact guard assistance as patient completes activity. Assistance may be provided throughout the activity or intermittently. 3-Partial/Moderate Assistance-helper does LESS THAN HALF the effort. [place] lifts, holds or supports trunk or limbs, but provides less than half the effort. 2-Substantial/Maximal Assistance-helper does MORE THAN HALF the effort. [place] lifts or holds trunk or limbs and provides more than half the effort. 9-[place]dsdkkc[place] does ALL the effort. Patient does none of the effort to complete the activity. Or, the assistance of 2 or more helpers is required for the patient to complete the activity. If activity was not attempted, code reason: 7-Patient Refused. 9-Not Applicable-not attempted and the patient did not perform the activity before the current illness, exacerbation or injury. 10-Not Attempted due to Environmental Limitations-(lack of equipment, weather restraints, etc.). 88-Not Attempted due to Medical Conditions or Safety Concerns. Sit to Lying (QC): 6 Lying to Sitting/Side of Bed(Q: 6 Sit to Stand (QC): 4 Weight Bearing Right Lower Extremity: Right Weight Bearing/Tolerated Left Lower Extremity: Left Full Weight Bearing Gait Training Distance: 200' Walk 10 feet (QC): 4 Walk 50 ft with 2 Turns(QC): 4 Walk 150 ft (QC): 4 Gait Assistive Device: FWW improved gait sequence/more erect posture Exercises Supine Ex: Ankle pumps, Quad Set, Heel Slides, Straight leg raise Supine Reps: 15 Seated Therapy Exercises: Long arc quads Seated Reps: 15 Assessment Patient improved with gait and exercise this p.m. Patient tolerated increase in activity. AROM right knee flexion /extension 80/5 degrees. PT Plan Treatment/Plan Treatment Plan: Continue Plan of Care Treatment Plan: Bed Mobility, Education, Functional Activity Leslie, Functional Strength, Gait, Safety, Therapeutic Exercise, Transfers Treatment Duration: Apr 12, 2023 Frequency: 11 times per week Estimated Hrs Per Day: .5 hour per day Patient and/or Family Agrees t: Yes Time Time In: 1300 Time Out: 1324 DATE: Apr 08, 2023 Total Billed Treatment Time: 24 Total Billed Treatment 1 visit GT 10 min EX 14 min OLIVER BROWNE PT Apr 08, 2023 14:22
[2023-04-08 16:47] VITALS: BP 138/63
[2023-04-08 19:29] VITALS: BP 142/60
[2023-04-08 23:43] VITALS: BP 119/61
[2023-04-09] MEDS: oxyCODONE IMMEDIATE RELEASE 5 MG TABLET PO PRN (01:02)
[2023-04-09] MEDS: BACLOFEN 10 MG TABLET PO PRN ×2 (03:30→11:42)
[2023-04-09 03:34] VITALS: BP 137/69
[2023-04-09 05:44] LABS: BASOPHILS % (AUTO) 0 % (0-10); EOSINOPHILS # (AUTO) 0.1 10^3/uL (0.0-0.3); EOSINOPHILS % (AUTO) 1 % (0-10); HEMATOCRIT 37 % (40-54); HEMOGLOBIN 12.6 g/dL (13.3-17.7); LYMPHOCYTES # (AUTO) 1.3 10^3/uL (1.0-4.0); LYMPHOCYTES % (AUTO) 12 % (12-44); MEAN CORPUSCULAR HEMOGLOBIN 36 pg (25-34); MEAN CORPUSCULAR HGB CONC 34 g/dL (32-36); MEAN CORPUSCULAR VOLUME 105 fL (80-99); MEAN PLATELET VOLUME 10.7 fL (9.0-12.2); MONOCYTES # (AUTO) 0.9 10^3/uL (0.0-1.0); MONOCYTES % (AUTO) 8 % (0-12); NEUTROPHILS # (AUTO) 7.9 10^3/uL (1.8-7.8); NEUTROPHILS % (AUTO) 77 % (42-75); PLATELET COUNT 204 10^3/uL (130-400); WHITE BLOOD COUNT 10.2 10^3/uL (4.3-11.0)
[2023-04-09 06:00] LABS: ALBUMIN 3.6 GM/DL (3.2-4.5)
[2023-04-09 06:01] LABS: POTASSIUM 3.4 MMOL/L (3.6-5.0)
[2023-04-09 06:02] LABS: CALCIUM 8.7 MG/DL (8.5-10.1)
[2023-04-09 06:03] LABS: TOTAL PROTEIN 6.4 GM/DL (6.4-8.2)
[2023-04-09 06:05] LABS: BILIRUBIN,TOTAL 0.9 MG/DL (0.1-1.0)
[2023-04-09 06:07] LABS: CREATININE SERUM 0.84 MG/DL (0.60-1.30)
[2023-04-09] MEDS: THERAPEUTIC MULTIVITAMIN W/MINERALS TABLET PO SCH (06:14)
--- NOTE | 2023-04-09 07:18 | Progress Note ---
DIANA BETTENCOURT 04/09/23 0718: Subjective Date Seen by a Provider: Apr 09, 2023 Time Seen by a Provider: 07:17 Subjective/Events-last exam Pt is doing well today and has just gotten done with therapy when talked to this morning. Rated pain 0/10 with rest and an 8/10 with movement. Pt is less en ergetic today although he wonders if this is d/t poor night of sleep. WBC went from 9.2 to 10.2 today; increase in neut from 75% to 77%. Pt denies fever except for the first night he was here on the 4th. UO = 475 over 24 hrs reported by nurse. Review of Systems General: Fatigue HEENT: No Visual Changes, No Eye Pain Pulmonary: No Dyspnea, No Cough Cardiovascular: No: Chest Pain, Palpitations, Orthopnea Gastrointestinal: Nausea; No: Vomiting, Abdominal Pain Genitourinary: No Dysuria, No Frequency Musculoskeletal: back pain, leg pain Neurological: No: Change in speech, Confusion Objective Exam Last Set of Vital Signs Vital Signs Date Time Temp Pulse Resp B/P (MAP) Pulse Ox O2 Delivery O2 Flow Rate FiO2 04/09/23 03:34 37.1 89 17 137/69 (91) 94 Room Air 0.00 0.00 Capillary Refill : I&O Intake and Output 04/08/23 23:59 Intake Total 3200 ml Output Total 1950 ml Balance 1250 ml Intake Oral 3100 ml IV Total 100 ml Output Urine Total 1950 ml # Voids 4 General: Alert, Oriented X3, Cooperative, No Acute Distress HEENT: Atraumatic Neck: Supple, No JVD, No Thyromegaly Lungs: Clear to Auscultation, Normal Air Movement Heart: Regular Rate, No Murmurs Abdomen: Normal Bowel Sounds, Soft, No Tenderness Extremities: No Edema, Normal Pulses Skin: No Rashes, No Breakdown Neuro: Normal Speech, Normal Tone Psych/Mental Status: Mental Status NL, Mood NL Results Lab Laboratory Tests 04/09/23 05:15: White Blood Count 10.2, Red Blood Count 3.50L, Hemoglobin 12.6L, Hematocrit 37L, Mean Corpuscular Volume 105H, Mean Corpuscular Hemoglobin 36H, Mean Corpuscular Hemoglobin Concent 34, Red Cell Distribution Width 11.6, Platelet Count 204, Mean Platelet Volume 10.7, Immature Granulocyte % (Auto) 1, Neutrophils (%) (Auto) 77H, Lymphocytes (%) (Auto) 12, Monocytes (%) (Auto) 8, Eosinophils (%) (Auto) 1, Basophils (%) (Auto) 0, Neutrophils # (Auto) 7.9H, Lymphocytes # (Auto) 1.3, Monocytes # (Auto) 0.9, Eosinophils # (Auto) 0.1, Basophils # (Auto) 0.0, Immature Granulocyte # (Auto) 0.1, Sodium Level 137, Potassium Level 3.4L, Chloride Level 105, Carbon Dioxide Level 23, Anion Gap 9, Blood Urea Nitrogen 13, Creatinine 0.84, Estimat Glomerular Filtration Rate 92, BUN/Creatinine Ratio 15, Glucose Level 113H, Calcium Level 8.7, Corrected Calcium 9.0, Total Bilirubin 0.9, Aspartate Amino Transf (AST/SGOT) 23, Alanine Aminotransferase (ALT/SGPT) 17, Alkaline Phosphatase 48, Total Protein 6.4, Albumin 3.6 Assessment/Plan Assessment/Plan Assess & Plan/Chief Complaint R knee osteoarthritis s/p R total knee arthroplasty 04/07/[address] Harris - Optimize pain control - Continue PT/OT - PPI - Encourage regular ambulation Hypokalemia - stable at 3.4 - Given oral replacement therapy MARY ANNE VIVAS DO 04/10/23 0447: Subjective Subjective/Events-last exam Patient doing really well Ready for discharge Potassium supplement given Objective Exam General: Alert, Oriented X3, Cooperative, No Acute Distress Lungs: Clear to Auscultation, Normal Air Movement Heart: Regular Rate, Normal S1, Normal S2, No Murmurs Assessment/Plan Assessment/Plan Assess & Plan/Chief Complaint Ready for discharge Supervisory-Addendum Brief Verification & Attestation Participated in pt care: history, MDM, physical Personally performed: exam, history, MDM, supervision of care Care discussed with: Medical Student Procedures: n/a Results interpretation: Verified all documentation Verification and Attestation of Medical Student E/M Service A medical student performed and documented this service in my presence. I reviewed and verified all information documented by the medical student and made modifications to such information, when appropriate. I personally performed the physical exam and medical decision making. Mary Anne Crain Apr 10, 2023,04:46 DIANA BETTENCOURT Apr 09, 2023 07:18 MARY ANNE CRAIN DO Apr 10, 2023 04:47
[2023-04-09 07:45] VITALS: BP 152/75
[2023-04-09] MEDS ORDERED: APIX2.5T PO (08:22)
[2023-04-09] MEDS ORDERED: OXC5T PO (08:22)
[2023-04-09] MEDS: DOCUSATE SODIUM 100 MG CAPSULE PO SCH (08:23)
[2023-04-09] MEDS: APIXABAN 2.5 MG TABLET PO SCH (08:23)
[2023-04-09] MEDS: TAMSULOSIN 0.4 MG (FLOMAX) CAP PO SCH (08:23)
[2023-04-09] MEDS: MONTELUKAST 10 MG TABLET PO SCH (08:23)
[2023-04-09] MEDS: PANTOPRAZOLE 40 MG TABLET PO SCH (08:23)
[2023-04-09] MEDS: CELECOXIB 100 MG CAPSULE PO SCH (08:23)
--- NOTE | 2023-04-09 08:26 | Discharge Summary ---
Discharge Summary Hospital Course Hospital Course Date of Admission: 04/07/23 Admission Diagnosis : Right Knee Primary Osteoarthritis Family Physician/Provider: Date of Discharge: 04/09/23 Discharge Diagnosis: [Right Knee Primary Osteoarthritis s/p TKA ] Hospital Course: [On 04/07/23, patient underwent right total knee arthroplasty. Tolerated the procedure well and was transferred to the regular floor. On the day of surgery, began mechanical DVT prophylaxis and started to work with therapy. On POD #1, made good progress with therapy and began chemical DVT prophylaxis. On POD #2, continued to make progress with therapy and home health therapy arrangements were made. Patient was ready for discharge home. ] Labs and Pending Lab Test: Laboratory Tests 04/09/23 05:15: White Blood Count 10.2, Red Blood Count 3.50L, Hemoglobin 12.6L, Hematocrit 37L, Mean Corpuscular Volume 105H, Mean Corpuscular Hemoglobin 36H, Mean Corpuscular Hemoglobin Concent 34, Red Cell Distribution Width 11.6, Platelet Count 204, Chrissy n Platelet Volume 10.7, Immature Granulocyte % (Auto) 1, Neutrophils (%) (Auto) 77H, Lymphocytes (%) (Auto) 12, Monocytes (%) (Auto) 8, Eosinophils (%) (Auto) 1, Basophils (%) (Auto) 0, Neutrophils # (Auto) 7.9H, Lymphocytes # (Auto) 1.3, Monocytes # (Auto) 0.9, Eosinophils # (Auto) 0.1, Basophils # (Auto) 0.0, Immature Granulocyte # (Auto) 0.1, Sodium Level 137, Potassium Level 3.4L, Chloride Level 105, Carbon Dioxide Level 23, Anion Gap 9, Blood Urea Nitrogen 13, Creatinine 0.84, Estimat Glomerular Filtration Rate 92, BUN/Creatinine Ratio 15, Glucose Level 113H, Calcium Level 8.7, Corrected Calcium 9.0, Total Bilirubin 0.9, Aspartate Amino Transf (AST/SGOT) 23, Alanine Aminotransferase (ALT/SGPT) 17, Alkaline Phosphatase 48, Total Protein 6.4, Albumin 3.6 Home Meds Active Oxyir Tablet (Oxycodone HCl) 5 Mg Tab 5 Mg PO Q4H PRN 7 Days Eliquis (Apixaban) 2.5 Mg Tablet 2.5 Mg PO BID 14 Days Reported Cetirizine HCl 10 Mg Tablet 10 Mg PO NEEDED Montelukast Sodium 10 Mg Tablet 10 Mg PO DAILY Flomax (Tamsulosin HCl) 0.4 Mg Cap 2 Cap PO DAILY Venlafaxine HCl ER (Venlafaxine HCl) Unknown Strength Cap.er.24h Unknown Dose PO DAILY Meloxicam 15 Mg Tablet 15 Mg PO DAILY Omeprazole 40 Mg Capsule.dr 40 Mg PO DAILY Assessment/Pt Instructions WBAT on right leg; use walker for assist. Dry dressing daily to incision site; do not get incision wet. Home health therapy for motion/strengthening/gait training. F/U with Dr. Saravanan Harris ~2 weeks after surgery. Discharge Physical Examination Vital Signs Vital Signs Date Time Temp Pulse Resp B/P (MAP) Pulse Ox O2 Delivery O2 Flow Rate FiO2 04/09/23 07:45 37.3 100 16 152/75 (100) 95 Room Air 04/09/23 03:34 0.00 0.00 Extremity: Other (R Knee: Incision C/D/I, +DF of ankle, no s/s of DVT) Allergies: Coded Allergies: No Known Drug Allergies (Unverified , 03/18/23) Discharge Summary Date of Admission Date of Discharge SARAVANAN HARRIS MD Apr 09, 2023 08:26
--- NOTE | 2023-04-09 08:27 | D/C HH Face to Face Order ---
D/C Face to Face Orders Instructions for Patient Via [facility], Patient Instructions/FollowUp: WBAT on right leg; use walker for assist. Dry dressing daily to incision site; do not get incision wet. Home health therapy for motion/strengthening/gait training. F/U with Dr. Saravanan Harris ~2 weeks after surgery. Physician to follow Patient: Saravanan Harris Discharge Diet for Home: No Restrictions Patient Data-Allergies,Ht & Wt Patient Allergies: Coded Allergies: No Known Drug Allergies (Unverified , 03/18/23) Home Health Need/Face to Face Date of Face to Face: Apr 09, 2023 Clinical Findings: Muscle weakness, Pain with ambulation I have seen Pt [id number]: Yes Discharged To: Home Diagnosis/Conditions: Right Knee OA s/p TKA Patient is Homebound due to: Muscle weakness, Pain w/ambulation Homebound Status Due to the above stated illness, injury or surgical procedure (medical condition or diagnosis) and associated clinical findings, the patient is homebound because of his/her inability to leave home except with aid of a supportive device and/or person AND leaving the home requires a considerable and taxing effort or is medically contraindicated. Pt req the following assistanc: Walker Home Health Nursing Orders Home Health Services Order: Physical Therapy-Evaluate & Treat Home Health Infusion Therapy Line Start Date: Apr 07, 2023 Therapy Orders Therapy Specific Orders: Gait training, Increase strength/endurance, Restore ROM Certify Stmt I certify that this patient is under my care and that I, a nurse practitioner or a physician; a assistant coach working with me, had a face to face encounter that - meets the physician face to face encounter requirements with this patient as dated. SARAVANAN HARRIS MD Apr 09, 2023 08:27
--- NOTE | 2023-04-09 09:13 | Physical Therapy Daily Note ---
PT Daily Note-Current Subjective Patient sitting in chair upon PT arrival, agreeable to treatment. Pain Section J - Health Conditions 1. Rarely or not at all 2. Occasionally 3. Frequently 4. Almost constantly 8. Unable to answer Pain Effect on Sleep: 1 Pain Interference with Therapy: 1 Pain Interference w/Day-to-Day: 1 Transfers SCALE: Activities may be completed with or without assistive devices. 9-Cvrtvewpln-bsjvpmz completes the activity by him/herself with no assistance from a helper. 5-Set-up or Clean-up Assistance-helper sets up or cleans up; patient completes activity. [place] assists only prior to or following the activity. 4-Supervision or Touching Assistance-helper provides verbal cues and/or touching/steadying and/or contact guard assistance as patient completes activity. Assistance may be provided throughout the activity or intermittently. 3-Partial/Moderate Assistance-helper does LESS THAN HALF the effort. [place] lifts, holds or supports trunk or limbs, but provides less than half the effort. 2-Substantial/Maximal Assistance-helper does MORE THAN HALF the effort. [place] lifts or holds trunk or limbs and provides more than half the effort. 0-Thugnjrxd-nchbid does ALL the effort. Patient does none of the effort to complete the activity. Or, the assistance of 2 or more helpers is required for the patient to complete the activity. If activity was not attempted, code reason: 7-Patient Refused. 9-Not Applicable-not attempted and the patient did not perform the activity before the current illness, exacerbation or injury. 10-Not Attempted due to Environmental Limitations-(lack of equipment, weather restraints, etc.). 88-Not Attempted due to Medical Conditions or Safety Concerns. Sit to Stand (QC): 4 Chair/Kau-ys-Lwgzq Xfer(QC): 4 Weight Bearing Right Lower Extremity: Right Weight Bearing/Tolerated Left Lower Extremity: Left Full Weight Bearing Gait Training Does the Patient Walk?: Yes Distance: 250' Walk 10 feet (QC): 4 Walk 50 ft with 2 Turns(QC): 4 Walk 150 ft (QC): 4 Gait Assistive Device: FWW Assessment Current Status: Fair Progress Patient tolerated treatment well. Demonstrates increased tolerance to gait distance, however no change in gait pattern this treatment. Patient ambulates 250 feet with FWW, with SBA and verbal cues for posture, TKE right knee and safety. Patient in chair post treatment with all needs met, nursing notified, call light in hand. PT Plan Treatment/Plan Treatment Plan: Continue Plan of Care Treatment Plan: Bed Mobility, Education, Functional Activity Leslie, Functional Strength, Gait, Safety, Therapeutic Exercise, Transfers Treatment Duration: Apr 12, 2023 Frequency: 11 times per week Estimated Hrs Per Day: .5 hour per day Patient and/or Family Agrees t: Yes Safety Risks/Education Patient Education: Gait Training, Transfer Techniques Teaching Recipient: Patient Teaching Methods: Demonstration, Discussion Response to Teaching: Verbalize Understanding, Return Demonstration Time Time In: 846 Time Out: 900 DATE: Apr 09, 2023 Total Billed Treatment Time: 14 Total Billed Treatment Visit, GT KWABENA ABERNATHY PT Apr 09, 2023 09:13
[2023-04-09] MEDS ORDERED: POTASSIUM CHLORIDE 20 MEQ TABLET PO NR (10:00)
[2023-04-09 12:20] VITALS: BP 136/60
== END 2023-04-09 13:35 | disposition home health service (06) ==
LOC: SDC 06:10 → EDSTATUS 07:30 → 4TH 11:30 → SDC 04-09 13:35
PROVIDERS: ATTEND Orthopaedic Surgery
DX: M17.11 Unilateral primary osteoarthritis, right knee (principal); E87.6 Hypokalemia; R11.0 Nausea; N40.0 Benign prostatic hyperplasia without lower urinary tract symptoms; Z87.891 Personal history of nicotine dependence
CPT/HCPCS: 36415; 73560; 80053; 85025